=== PATIENT | female | born 1975 | race Caucasian/White ===

== ENCOUNTER → 2024-03-10 13:01 | Outpatient (CLI) | payer OTHER, SELFPAY ==
[2024-03-10 13:55] LABS: Add Manual Diff / Slide Review NO; Basophils Absolute Auto 0 /uL (0-100); Basophils Percent Auto 0.7 % (0-2); Eosinophils Absolute Auto 100 /uL (0-450); Eosinophils Percent Auto 1.4 % (2-4); Hematocrit 29.4 % (36-46); Lymphocytes Absolute Auto 1300 /uL (1100-4500); Mean Corpuscular HGB Conc 30.5 % (30-36); Mean Corpuscular Hemoglobin 21.4 PG (26-34); Mean Corpuscular Volume 70.2 fL (80-100); Monocytes Absolute Auto 600 /uL (0-900); Monocytes Percent Auto 10.1 % (3-14); Neutrophils Absolute Auto 3600 /uL (1500-7000); Neutrophils Percent Auto 64.8 % (50-75); Platelet Count 427 X10^3/uL (150-400); Red Blood Cell Count 4.19 X10^6/uL (4.0-5.2); Red Cell Distribution Width 18.7 % (11.6-14.8); White Blood Cell Count 5.5 X10^3/uL (4.5-11.0)
[2024-03-10 14:18] LABS: Alanine Aminotransferase 14 IU/L (<35); Albumin 4.3 g/dL (3.5-5.0); Albumin Globulin Ratio 1.4 (1.0-2.8); Alkaline Phosphatase 76 U/L (38-126); Aspartate Aminotransferase 20 IU/L (14-36); BUN Creatinine Ratio 21.7 (6-22); Bilirubin Total 0.4 mg/dL (0.2-1.3); Blood Urea Nitrogen 13 mg/dL (7-17); Calcium 9.2 mg/dL (8.4-10.2); Carbon Dioxide 24 mmol/L (22-32); Chloride 105 mmol/L (98-107); Cholesterol 213 mg/dL (140-199); Estimated Glomerular Filt Rate > 60 mL/min (>60); Glucose 86 mg/dL (70-100); HDL Cholesterol 67 mg/dL (40-60); HEMOLYSIS < 15 (0-50); LDL Cholesterol Calculated 115 mg/dL (<100); Potassium 4.4 mmol/L (3.4-5.1); Sodium 136 mmol/L (137-145); Total Protein 7.3 g/dL (6.3-8.2); Triglycerides 154 mg/dL (35-150)
[2024-03-10 14:47] LABS: TSH w/ Reflex to FT4 1.13 uIU/mL (0.47-4.68)
[2024-03-10 17:47] LABS: Microalbumin Urine Random 1.5 mg/dL (0-1.6)
[2024-03-12 15:02] LABS: HEMOLYSIS < 15 (0-50); Iron 25 ug/dL (37-170)
[2024-03-12 15:13] LABS: Percent Iron Saturation 5 % (15-50); Total Iron Binding Capacity 492 ug/dL (265-497); Transferrin 461 mg/dL (206-381)
[2024-03-12 15:38] LABS: Ferritin 5 ng/mL (11-264)
== END ==
PROVIDERS: PCP Family Medicine; Referring Provider Family Medicine; Visit Provider Family Medicine
DX: N93.9 Abnormal uterine and vaginal bleeding, unspecified (principal); Z13.6 Encounter for screening for cardiovascular disorders; M54.50 Low back pain, unspecified; R60.0 Localized edema; M25.472 Effusion, left ankle; L98.8 Other specified disorders of the skin and subcutaneous tissue
CPT/HCPCS: 36415; 80053; 80061; 82043; 82570; 82728; 83540; 83550; 84443; 85025

== ENCOUNTER → 2024-04-28 06:57 | Outpatient (CLI) | payer OTHER, SELFPAY ==
--- NOTE | 2024-04-28 06:58 | DI.ECHO.S_ITS ---
[facility] +---------+ [facility] : : [address] : : [place] : : [id number] : : Phone: [phone] Echocardiogram Report + + :Name: RUSSEL RUIZ Study Date: 04/28/2024 Height: 69 in : :Hospital ReadingLocation: Weight: 170 lb : : Gender: Female BSA: 1.9 m2 : :: 1975 Age: 49 yrs BP: 157/93 mmHg: :Reason For Study: LOCALIZED EDEMA : :Ordering Physician: MARCO ANTONIO, : :MARY Cody Performed By: Natalie Glaser : :Referring: MARY BERNARD : + + Interpretation Summary Normal left ventricle size with ejection fraction 60-65%. Mild mitral regurgitation. Procedure: A two-dimensional transthoracic echocardiogram with color flow and Doppler was performed. The study quality was technically adequate. There is no prior echocardiogram noted for this patient. The patient was in sinus rhythm with heart rates between 63-75 bpm during the exam. Left Ventricle: The left ventricle is normal in size. There is normal left ventricular wall thickness. The ejection fraction is estimated to be 60-65%. There are no focal wall motion abnormalities. Diastolic parameters suggest probable normal left ventricular diastolic function and normal filling pressures. Right Ventricle: The right ventricle is normal in size and function. Atria: The left atrial size is normal. Right atrial size is normal. There is no Doppler evidence for an interatrial shunt. Mitral Valve: The mitral valve leaflets appear normal. There is no evidence of stenosis, fluttering, or prolapse. There is mild mitral regurgitation. Aortic Valve: The aortic valve is trileaflet. The aortic valve opens well. There is no aortic valve stenosis. No aortic regurgitation is present. Tricuspid Valve: The tricuspid valve leaflets are thin and pliable. There is trace tricuspid regurgitation. Pulmonary artery pressures cannot be estimated because of the lack of a measurable TR jet velocity. Pulmonic Valve: The pulmonic valve leaflets are thin and pliable; valve motion is normal. There is trace pulmonic regurgitation. Great Vessels: The aortic root is normal size. The dimensions of the ascending aorta are normal. The IVC is of normal diameter and collapses greater than 50% with a sniff. This suggests a low right atrial pressure of 3 mm Hg. Pericardium/ Pleura There is no pericardial effusion. There is no pleural effusion. MMode/2D Measurements & Calculations LVIDd: 4.8 cm LVOT diam: 2.0 cm LVIDs: 3.0 cm Ao root diam: 2.5 cm FS: 37.7 % asc Aorta Diam: 3.4 cm EPSS: 0.54 cm Ao Arch Diam (Prox Trans): 3.1 cm IVSd: 0.74 cm LVPWd: 0.78 cm LV sousa. diameter/BSA (cm/m^2): 2.5 LV sys. diameter/BSA (cm/m^2): 1.5 LA A2 area: 16.8 cm2 RA long axis: 4.3 cm LA A4 area: 15.5 cm2 RA area: 13.1 cm2 LA length (vol): 4.5 cm RA vol: 33.9 ml LA vol: 49.2 ml RA : 17.6 ml/m2 LA vol index: 25.5 ml/m2 IVC diam: 1.8 cm RVD1 (basal): 3.4 cm TAPSE: 2.5 cm Doppler Measurements & Calculations Ao V2 max: 160.4 cm/sec LVOT Max Kavon: 117.1 cm/sec Ao V2 mean: 103.1 cm/sec LV V1 max P.5 mmHg Ao max P.3 mmHg LV V1 VTI: 24.5 cm Ao mean P.9 mmHg CESAR(I,D): 2.3 cm2 Ao V2 VTI: 34.1 cm CESAR(V,D): 2.4 cm2 sev ratio: 0.72 CESAR indexed to BSA (cm^2/m^2): 1.2 MV E max kavon: 89.7 cm/sec PA V2 max: 89.7 cm/sec MV A max kavon: 80.2 cm/sec PA V2 mean: 64.2 cm/sec MV E/A: 1.1 PA mean P.8 mmHg Med Peak E' Kavon: 10.8 cm/sec PA pr(Accel): 17.3 mmHg E/E' med: 8.3 Lat Peak E' Kavon: 14.5 cm/sec E/E' lat: 6.2 E/e' average: 7.3 MV dec time: 0.21 sec SV(LVOT): 79.9 ml Qp/Qs: 1.0/1.4 Electronically signed by: Tomas Bridges on Reading Physician:04/28/2024 08:46 AM
== END ==
PROVIDERS: PCP Family Medicine; Referring Provider Family Medicine; Visit Provider Family Medicine
DX: R60.0 Localized edema (principal); I34.0 Nonrheumatic mitral (valve) insufficiency
CPT/HCPCS: 93306